=== PATIENT | female | born 1950 | race Caucasian/White ===

== ENCOUNTER 2024-02-17 10:54 | Day surgery (SDC) | payer MEDICARE ==
[2024-02-13 14:03] VITALS: BMI 27.3
[2024-02-13 15:33] LABS: Hematocrit 39.5 % (34.9-44.5); Hemoglobin 13.3 g/dL (12.0-15.5); Mean Corpuscular HGB CONC 33.7 g/dL (32.0-36.0); Mean Corpuscular Hemoglobin 28.7 pg (27.0-33.0); Mean Corpuscular Volume 85.3 fL (81.6-98.3); Mean Platelet Volume 11.9 fL (7.4-10.4); Platelet Count 334 10x3/uL (150-450); RBC Distribution Width 13.6 % (11.5-14.5); Red Blood Cell (RBC) Count 4.63 10x6/uL (3.90-5.03); White Blood Cell (WBC) Count 9.5 10x3/uL (3.5-10.5)
[2024-02-17] MEDS ORDERED: Oxytocin 10 UNITS/ML VIAL ONE (12:06)
[2024-02-17] MEDS ORDERED: Clindamycin/D5W 900 mg/50 ml Premix Bag ONE (12:22)
[2024-02-17] MEDS ORDERED: PROPOFOL 20 ML ONE (12:28)
[2024-02-17] MEDS ORDERED: Fentanyl 250 MCG/5 ML VIAL ONE (12:28)
[2024-02-17] MEDS ORDERED: Ondansetron PF 4 MG/2 ML Vial ONE (12:43)
[2024-02-17] MEDS ORDERED: Metoclopramide HCl 10 MG (2 mL) VIAL ONE (12:43)
[2024-02-17] MEDS ORDERED: Dexamethasone 4 mg/ml Vial ONE (12:43)
[2024-02-17] MEDS ORDERED: Glycopyrrolate 0.2 MG/ML 5 ML SYRINGE ONE (12:47)
[2024-02-17] MEDS ORDERED: PHENYLEPHRINE-NS 100 MCG/ML 10 ML SYRINGE ONE (12:57)
== END 2024-02-17 14:25 | disposition home or self-care (01) ==
LOC: CSHSDC 10:54
PROVIDERS: ATTEND Obstetrics & Gynecology
PROC: 0UB98ZZ Excision of Uterus, Via Natural or Artificial Opening Endoscopic (ICD-10-PCS; principal; 2024-02-17)
DX: N84.0 Polyp of corpus uteri (principal); N85.8 Other specified noninflammatory disorders of uterus; Z88.0 Allergy status to penicillin
CPT/HCPCS: 58558; 85027; 86850; 86900; 86901; J1100; J2405; J2704; J2765; J3010; J3490; 36415; 88305; J2590